=== PATIENT | male | born 1960 | race Hispanic/Latino ===

== ENCOUNTER 2019-09-25 19:13 | Emergency (ER) | payer OTHER, SELFPAY ==
--- NOTE | 2019-09-25 20:13 | RAD REPORT ---
EXAM DESCRIPTION: CT - CTHCSPWOC - 09/25/2019 8:01 pm CLINICAL HISTORY: Trauma, head and neck injury. fall and hit head COMPARISON: No comparisons TECHNIQUE: Axial 5 mm thick images of the head were obtained. Axial 2 mm thick images of the cervical spine were obtained with sagittal and coronal reconstruction images generated and reviewed. All CT scans are performed using dose optimization technique as appropriate and may include automated exposure control or mA/KV adjustment according to patient size. FINDINGS: CT HEAD WITHOUT CONTRAST: No acute hemorrhage, hydrocephalus or extra-axial collection is identified.Prominent brain atrophy is seen with gliosis in the distribution of the left MCA territory compatible with remote infarction. The paranasal sinuses and mastoids are clear.The calvarium is intact. CT CERVICAL SPINE WITHOUT CONTRAST: No fracture or subluxation.No prevertebral soft tissues swelling is identified. IMPRESSION: No acute intracranial or cervical spine findings.
[2019-09-25 20:20] LABS: Protime INR 1.02
[2019-09-25 20:37] LABS: ALT/SGPT 44 U/L (12-78); AST/SGOT 33 U/L (15-37); Albumin 3.9 g/dL (3.4-5.0); Alkaline Phosphatase 127 U/L (45-117); BUN Blood Urea Nitrogen 16 mg/dL (7-18); Bicarbonate 23 mmol/L (21-32); Bilirubin Direct < 0.1 mg/dL (0-0.2); Bilirubin Total 0.2 mg/dL (0.2-1.0); Glucose Level 309 mg/dL (74-106); Potassium 3.7 mmol/L (3.5-5.1); Sodium Level 137 mmol/L (136-145)
[2019-09-25 20:46] LABS: Absolute Lymphocytes (CBC) 2.6 K/uL (0.7-4.9); Basophils % 0.5 % (0-1.3); Hematocrit 43.3 % (39.6-49.0); Lymphocytes % 30.6 % (15.3-44.8); MPV 9.4 fL (7.6-11.3); RBC Red Blood Cell Count 4.44 M/uL (4.33-5.43)
[2019-09-25] MEDS ORDERED: NA CHLORIDE 0.9% 250 ML ONE (21:48)
[2019-09-25] MEDS ORDERED: LEVETIRACETAM 500 MG/5 ML VIAL IV ONE (21:48)
--- NOTE | 2019-09-25 22:20 | ER ---
Nurse's Notes [facility] Name: Jerrell Zurita Age: 59 yrs Sex: Male : 1960 Arrival Date: 09/25/2019 Time: 19:26 Bed 19 Private MD: Diagnosis: Epilepsy and recurrent seizures Presentation: 09/24 19:30 Chief complaint: EMS states: patient had a general seizure approximate 1 minute, hit rr5 his head and 2-3 minutes post ictal phase. he is a handicapped, in [employer] theater on the drinks and popcorn section. 19:30 Coronavirus screen: The patient has NOT traveled to a country currently being monitored rr5 by the [facility] within the last 14 days. Proceed with normal triage procedures. Ebola Screen: Patient negative for fever greater than or equal to 101.5 degrees Fahrenheit, and additional compatible Ebola Virus Disease symptoms Patient denies exposure to infectious person. Patient denies travel to an Ebola-affected area in the 21 days before illness onset. Initial Sepsis Screen: Does the patient meet any 2 criteria? No. Patient's initial sepsis screen is negative. Does the patient have a suspected source of infection? No. Patient's initial sepsis screen is negative. Risk Assessment: Do you want to hurt yourself or someone else? Patient reports no desire to harm self or others. Onset of symptoms was September 25, 2019 at 18:35. Transition of care: from a assisted in [place]. 19:30 Method Of Arrival: EMS: [facility] rr5 19:30 Acuity: LUCINA 3 rr5 19:50 Note ornamental metalwork designer Alix from assisted contact number [phone]. rr5 Historical: - Allergies: 19:47 Vimpat; rr5 - Home Meds: 19:47 multivitamin with minerals oral oral [Active]; olanzapine oral oral [Active]; rr5 oxcarbazepine oral oral [Active]; pregabalin Oral [Active]; Ranitidine Oral [Active]; sertraline oral oral [Active]; Vitamin D Oral [Active]; zonisamide oral oral [Active]; Aspirin Oral [Active]; atorvastatin oral oral [Active]; Clonazepam Oral [Active]; DOK oral oral [Active]; donepezil oral oral [Active]; Folic Acid Oral [Active]; Lactulose Oral [Active]; lamotrigine oral oral [Active]; levetiracetam oral oral [Active]; memantine oral oral [Active]; Metformin Oral [Active]; - PMHx: 19:47 liver problem; Seizures; intellectual issue; stroke; Diabetes - NIDDM; Hyperlipidemia; rr5 - PSHx: 19:47 Unable to obtain; rr5 - Immunization history:: Adult Immunizations up to date. - Social history:: Smoking status: Patient/guardian denies using tobacco, Patient uses alcohol, quit. Patient/guardian denies using street drugs. Screenin:35 Abuse screen: Denies threats or abuse. Denies injuries from another. Nutritional rr5 screening: No deficits noted. Tuberculosis screening: No symptoms or risk factors identified. Fall Risk Fall in past 12 months (25 points). IV access (20 points). Mental Status- Overestimates/Forgets Limitations (15 pts.). Total Briggs Fall Scale indicates High Risk Score (45 or more points). Fall prevention measures have been instituted. Side Rails Up X 2 Placed Close to Nursing Station Frequent Obs/Assessments Occuring As available patient and family educated on Fall Prevention Program and Strategies. Assessment: 19:30 General: Appears in no apparent distress. comfortable, Behavior is calm, cooperative, rr5 EMS and ornamental metalwork designer reported seizure activity. 19:30 Pain: Unable to use pain scale. Patient is disoriented. Patient appears intellectual rr5 issues. Neuro: Level of Consciousness is awake, alert, Oriented to person. Cardiovascular: Capillary refill < 3 seconds Patient's skin is warm and dry. Respiratory: Airway is patent Respiratory effort is even, unlabored, Respiratory pattern is regular, symmetrical. GI: No signs and/or symptoms were reported involving the gastrointestinal system. : No signs and/or symptoms were reported regarding the genitourinary system. EENT: No signs and/or symptoms were reported regarding the EENT system. Derm: Skin is intact, is healthy with good turgor, Skin temperature is warm. Musculoskeletal: Circulation, motion, and sensation intact. Capillary refill < 3 seconds. 20:30 Reassessment: Patient appears in no apparent distress at this time. awaiting for rr5 results. ornamental metalwork designer contact number [phone] alix (assisted). 21:40 Reassessment: Patient appears in no apparent distress at this time. No changes from rr5 previously documented assessment. ED provider review the results. spoke to ornamental metalwork designer the plan of care at bedside. 22:30 Reassessment: Patient appears in no apparent distress at this time. discharge rr5 instruction given and explained without complaints made. Vital Signs: 19:30 BP 124 / 72; Pulse 77; Resp 13; Temp 98.2; Pulse Ox 92% ; Weight 94.8 kg; Height 5 ft. rr5 2 in. (157.48 cm); 19:50 BP 114 / 73; Pulse 74; Resp 15; Pulse Ox 96% on 3 lpm NC; rr5 20:30 BP 115 / 75; Pulse 69; Resp 19; Pulse Ox 100% on 2 lpm NC; rr5 21:30 BP 118 / 79; Pulse 80; Resp 15; Pulse Ox 98% on 2 lpm NC; rr5 22:35 BP 125 / 70; Pulse 75; Resp 16; Temp 98.4; Pulse Ox 96% on R/A; rr5 19:30 Body Mass Index 38.23 (94.80 kg, 157.48 cm) rr5 [place] Coma Score: 19:30 Eye Response: spontaneous(4). Verbal Response: confused(4). Motor Response: obeys rr5 commands(6). Total: 14. ED Course: 19:26 Patient arrived in ED. aa1 19:27 Emery Hollins PA is PHCP. cp 19:28 Sam Sethi MD is Attending Physician. cp 19:30 Patient has correct armband on for positive identification. Placed in gown. Bed in low rr5 position. Call light in reach. Side rails up X2. Seizure precautions initiated. holder pile driving on. Pulse ox on. NIBP on. 19:30 Maintain EMS IV. Dressing intact. Good blood return noted. Site clean \T\ dry. Gauge \T\ rr 5 site: G 22 right hand. 19:33 Jayjay Haynes RN is Primary Nurse. rr5 19:39 Triage completed. rr5 19:40 Arm band placed on right wrist. rr5 19:50 Initial lab(s) drawn, by ED staff, sent to lab. rr5 20:19 EKG done, by ED staff, reviewed by Emery JEAN BAPTISTE. rr5 22:30 No provider procedures requiring assistance completed. IV discontinued, intact, rr5 bleeding controlled, No redness/swelling at site. Pressure dressing applied. Administered Medications: 21:55 Drug: levETIRAcetam 1000 mg Route: IV; Rate: calculated rate; Site: right hand; rr5 22:30 Follow up: Response: No adverse reaction; IV Status: Completed infusion rr5 22:06 Not Given (will give by ornamental metalwork designer once at home as patient medication): Trileptal 600 mg rr5 PO once; if needed for a evening dose 22:07 Not Given (will give by ornamental metalwork designer once at home as patient medication): LaMICtal 200 mg rr5 PO once Outcome: 22:19 Discharge ordered by MD. chambers 22:30 Discharged to home ambulatory, from assisted staff rr5 22:30 Condition: stable 22:30 Discharge instructions given to [facility], Instructed on discharge instructions, follow up and referral plans. Demonstrated understanding of instructions, follow-up care. 22:45 Patient left the ED. rr5 Signatures: Iraida Quintero RN RN aa1 Emery Hollins PA PA cp Roque, Raymond RN RN rr5
--- NOTE | 2019-09-25 22:20 | EDPHYS ---
Physician Documentation [facility] Name: Jerrell Zurita Age: 59 yrs Sex: Male : 1960 Arrival Date: 09/25/2019 Time: 19:26 Bed 19 Private MD: ED Physician Sam Sethi HPI: 09/24 19:45 This 59 yrs old Male presents to ER via EMS with complaints of Seizure. cp 19:45 The patient presents after having a single isolated seizure, that lasted 1 minute(s). cp 19:45 Character of seizure(s): Loss of consciousness: the patient experienced loss of cp consciousness, brief, Motor activity: generalized, shaking all over, Incontinence: none. Seizure onset: just prior to arrival. Context: the seizure(s) was witnessed, skilled nursing staff, occurred movie theater, occurred while the [facility]. Seizure Hx: Seizure medications: Lamictal, Trileptal. Historical: - Allergies: 19:47 Vimpat; rr5 - Home Meds: 19:47 multivitamin with minerals oral oral [Active]; olanzapine oral oral [Active]; rr5 oxcarbazepine oral oral [Active]; pregabalin Oral [Active]; Ranitidine Oral [Active]; sertraline oral oral [Active]; Vitamin D Oral [Active]; zonisamide oral oral [Active]; Aspirin Oral [Active]; atorvastatin oral oral [Active]; Clonazepam Oral [Active]; DOK oral oral [Active]; donepezil oral oral [Active]; Folic Acid Oral [Active]; Lactulose Oral [Active]; lamotrigine oral oral [Active]; levetiracetam oral oral [Active]; memantine oral oral [Active]; Metformin Oral [Active]; - PMHx: 19:47 liver problem; Seizures; intellectual issue; stroke; Diabetes - NIDDM; Hyperlipidemia; rr5 - PSHx: 19:47 Unable to obtain; rr5 - Immunization history:: Adult Immunizations up to date. - Social history:: Smoking status: Patient/guardian denies using tobacco, Patient uses alcohol, quit. Patient/guardian denies using street drugs. ROS: 19:55 Constitutional: Negative for fever. cp 19:55 Unable to obtain ROS due to patient's inability to understand questions. cp Exam: 20:00 Constitutional: The patient appears in no acute distress, alert, awake, cp non-diaphoretic, non-toxic, well developed, well nourished. 20:00 Head/Face: Normocephalic, atraumatic. cp 20:00 Eyes: Periorbital structures: appear normal, Pupils: equal, round, and reactive to light and accomodation, Conjunctiva: normal, no exudate, no injection, Sclera: no appreciated abnormality, Lids and lashes: appear normal, bilaterally. 20:00 ENT: External ear(s): are unremarkable, Ear canal(s): are normal, clear, TM's: dullness, bilaterally, Nose: is normal, Mouth: Lips: moist, Oral mucosa: moist, Posterior pharynx: Airway: no evidence of obstruction, patent. 20:00 Neck: C-spine: vertebral tenderness, is not appreciated, crepitus, is not appreciated. 20:00 Chest/axilla: Inspection: normal, Palpation: crepitus, is not appreciated, tenderness, is not appreciated. 20:00 Cardiovascular: Rate: normal, Rhythm: regular, JVD: is not appreciated. 20:00 Respiratory: the patient does not display signs of respiratory distress, Respirations: normal, no use of accessory muscles, labored breathing, is not present, Breath sounds: are clear throughout, no decreased breath sounds, no stridor, no wheezing. 20:00 Abdomen/GI: Inspection: abdomen appears normal, Palpation: abdomen is soft and non-tender, in all quadrants. 20:00 Back: vertebral tenderness, is not appreciated. 20:00 Musculoskeletal/extremity: Exam is negative for decreased range of motion, deformity, injury. 20:00 Neuro: Orientation: to person, Mentation: slow to respond, Motor: moves all fours, strength is normal. 20:16 ECG was reviewed by the Attending Physician. cp Vital Signs: 19:30 BP 124 / 72; Pulse 77; Resp 13; Temp 98.2; Pulse Ox 92% ; Weight 94.8 kg; Height 5 ft. rr5 2 in. (157.48 cm); 19:50 BP 114 / 73; Pulse 74; Resp 15; Pulse Ox 96% on 3 lpm NC; rr5 20:30 BP 115 / 75; Pulse 69; Resp 19; Pulse Ox 100% on 2 lpm NC; rr5 21:30 BP 118 / 79; Pulse 80; Resp 15; Pulse Ox 98% on 2 lpm NC; rr5 22:35 BP 125 / 70; Pulse 75; Resp 16; Temp 98.4; Pulse Ox 96% on R/A; rr5 19:30 Body Mass Index 38.23 (94.80 kg, 157.48 cm) rr5 Ravi Coma Score: 19:30 Eye Response: spontaneous(4). Verbal Response: confused(4). Motor Response: obeys rr5 commands(6). Total: 14. MDM: 19:45 Patient medically screened. cp 20:00 Differential diagnosis: cerebral vascular accident, cardiac arrhythmia, seizure, TIA. cp 22:18 Data reviewed: vital signs, nurses notes, lab test result(s), EKG, radiologic studies, cp CT scan, and as a result, I will discharge patient. 22:18 Test interpretation: by ED physician or midlevel provider: ECG. Counseling: I had a cp detailed discussion with the patient and/or guardian regarding: the historical points, exam findings, and any diagnostic results supporting the discharge/admit diagnosis, lab results, radiology results, to return to the emergency department if symptoms worsen or persist or if there are any questions or concerns that arise at home. 22:18 ED course: VSS. No seizure activity observed while in ED. Will discharge to home for cp continued monitoring. 09/24 19:40 Order name: Acetaminophen cp 09/24 19:40 Order name: Basic Metabolic Panel cp 09/24 19:40 Order name: CBC with Diff cp 09/24 19:40 Order name: ETOH Level cp 09/24 19:40 Order name: Hepatic Function cp 09/24 19:40 Order name: PT-INR cp 09/24 19:40 Order name: Ptt, Activated cp 09/24 19:40 Order name: Salicylate cp 09/24 20:26 Order name: Protime (+INR); Complete Time: 20:55 EDMS 09/24 20:26 Order name: PTT, Activated Partial Thromb; Complete Time: 20:55 EDMS 09/24 20:36 Order name: Alcohol Serum/Plasma; Complete Time: 20:55 EDMS 09/24 20:38 Order name: Basic Metabolic Panel; Complete Time: 21:09 EDMS 09/24 22:10 Interpretation: Normal except: GLUC 309; GFR 72. cp 09/24 20:38 Order name: Liver (Hepatic) Function; Complete Time: 21:09 EDMS 09/24 22:11 Interpretation: Normal except: ALK 127; GLOB 4.1; A/G 1.0. cp 09/24 19:40 Order name: EKG; Complete Time: 19:41 cp 09/24 19:40 Order name: EKG - Nurse/Tech; Complete Time: 20:18 cp 09/24 19:40 Order name: IV Saline Lock; Complete Time: 20:19 cp 09/24 19:40 Order name: Labs collected and sent; Complete Time: 20:18 cp 09/24 19:46 Order name: CT Head C Spine 09/24 20:18 Order name: CT; Complete Time: 20:55 EDMS 09/24 20:55 Interpretation: Report reviewed. 09/24 20:56 Order name: CBC with Automated Diff; Complete Time: 21:09 EDMS 09/24 22:10 Interpretation: Within normal limits. 09/24 21:03 Order name: Acetaminophen Level; Complete Time: 21:09 EDMS 09/24 21:03 Order name: Salicylates Level; Complete Time: 21:09 EDMS 09/24 22:11 Order name: Accucheck Blood Glucose; Complete Time: 22:38 09/24 22:35 Order name: Glucose, Ancillary Testing EDMS EC:16 Rate is 66 beats/min. Rhythm is regular. WA interval is normal. QRS interval is normal. cp QT interval is normal. T waves are Flattened in leads aVF, V6. Interpreted by me. Reviewed by me. Administered Medications: 21:55 Drug: levETIRAcetam 1000 mg Route: IV; Rate: calculated rate; Site: right hand; rr5 22:30 Follow up: Response: No adverse reaction; IV Status: Completed infusion rr5 22:06 Not Given (will give by bundle shaker once at home as patient medication): Trileptal 600 mg rr5 PO once; if needed for a evening dose 22:07 Not Given (will give by bundle shaker once at home as patient medication): LaMICtal 200 mg rr5 PO once Disposition: 22:45 Chart complete. cp 22:51 Co-signature as Attending Physician, Sam Sethi MD. pkl Disposition: 03/06/20 22:19 Discharged to Home. Impression: Epilepsy and recurrent seizures. - Condition is Stable. - Discharge Instructions: Seizure, Adult. - Medication Reconciliation Form, Thank You Letter, Antibiotic Education, Prescription Opioid Use form. - Follow up: Private Physician; When: 2 - 3 days; Reason: Recheck today's complaints. - Problem is an acute exacerbation. - Symptoms have improved. Signatures: Dispatcher [employer] EDSam Toledo MD MD pkl Emery Hollins PA PA cp Roque, Raymond, RN RN rr5 Corrections: (The following items were deleted from the chart) 22:45 22:19 09/25/2019 22:19 Discharged to Home. Impression: Epilepsy and recurrent seizures. rr5 Condition is Stable. Forms are Medication Reconciliation Form, Thank You Letter, Antibiotic Education, Prescription Opioid Use. Follow up: Private Physician; When: 2 - 3 days; Reason: Recheck today's complaints. Problem is an acute exacerbation. Symptoms have improved. cp
[2019-09-25 23:23] VITALS: BP 125/70; TEMP 98.4; O2SAT 96
--- NOTE | 2019-09-26 07:37 | EKG ---
Test Date: 2019-09-25 Test Time: 20:14:08 Starch Treating Assistant: RR MEASUREMENT RESULTS: Intervals: Rate: 66 CT: 182 QRSD: 82 QT: 400 QTc: 419 [place]: P: 39 CT: 182 QRS: -1 T: -4 INTERPRETIVE STATEMENTS: Normal sinus rhythm Normal ECG No previous ECG available for comparison Electronically Signed On 09-26-19 07:36:35 ANIMATION DIRECTOR by Gregory Wellington
== END 2019-09-25 22:45 | disposition home or self-care (01) ==
LOC: ER 19:13
DX: G40.802 Other epilepsy, not intractable, without status epilepticus (principal); E11.9 Type 2 diabetes mellitus without complications; E78.5 Hyperlipidemia, unspecified; Z88.8 Allergy status to other drugs, medicaments and biological substances
CPT/HCPCS: 96365; 93005; 85025; 80048; 36415; 80320; 80329 ×2; 85610; 82947; 80076; 85730; 70450; 72125; 99284; J1953; J7030